=== PATIENT | male | born 1990 | race Caucasian/White ===

== ENCOUNTER 2019-12-01 17:16 | Emergency (ER) | payer SELFPAY ==
--- NOTE | 2019-12-01 17:53 | NUR ---
PT IN AGGRESSIVE TONE VERBALLY ATTACKING THIS RN. PT RUDE AND ARGUING WITH THIS RN AND [employer] IN ROOM. THEN, PT DECIDED TO LEAVE, BUT REFUSED TO SIGN AMA PAPER. THIS RN AND EMILY RN SIGNED AMA PAPER. PT ESCORTED OUT BY [place].
== END 2019-12-01 17:24 | disposition left against medical advice (07) ==
LOC: ED 17:18
DX: R68.89 Other general symptoms and signs (principal); Z53.21 Procedure and treatment not carried out due to patient leaving prior to being seen by health care provider